=== PATIENT | male | born 1935 | race Caucasian/White ===

== ENCOUNTER 2016-06-24 16:47 | Observation (INO) | payer MEDICARE ==
--- NOTE | 2016-06-24 17:45 | RAD ---
HISTORY: Left hip pain, fall, prior hip fracture COMPARISONS: December 15, 2015 VIEWS: 3, Frontal view of the pelvis with frontal and frog-leg views of the left hip FINDINGS: BONE DENSITY: There is diffuse osteopenia. BONES: The patient is status post left hip arthroplasty. There is no hardware failure or osteolysis. 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 ALIGNMENT: There is no dislocation. SOFT TISSUES: Unremarkable. OTHER FINDINGS: None. IMPRESSION: 1. OSTEOPENIA. 2. STATUS POST LEFT HIP ARTHROPLASTY. 3. NO ACUTE OSSEOUS INJURY. IF SYMPTOMS PERSIST, RECOMMEND REPEAT IMAGING.
[2016-06-24] MEDS ORDERED: hydrALAZINE IV* 20 MG/ML VIAL IM ONE (18:07)
[2016-06-24] MEDS ORDERED: traMADol TAB* 50 MG PO ONE (18:08)
[2016-06-24] MEDS ORDERED: amLODIPine TAB* 5 MG PO ONE (18:08)
[2016-06-24] MEDS ORDERED: traMADol TAB* 50 MG PO PRN (18:44)
[2016-06-24] MEDS ORDERED: Labetalol IV* 5 MG/ML 20 ML VIAL IV PUSH PRN (19:22)
[2016-06-24] MEDS: Acetaminophen TAB* 325 MG PO SCH (20:41)
[2016-06-24] MEDS: Morphine INJ* 2 MG/ML 1 ML CARPUJECT IV PRN (20:41)
[2016-06-24] MEDS ORDERED: Phenytoin CAP(*) 100 MG CAP.ER PO SCH (21:00)
--- NOTE | 2016-06-24 21:32 | HP ---
HISTORY AND PHYSICAL: DATE OF ADMISSION: 06/24/16 PCP: Dr. Espinal. PRINCIPAL DISCHARGE DIAGNOSIS: Left hip pain status post fall. HISTORY OF PRESENT ILLNESS: Mr. Fernandes is a pleasant 81-year-old male with a past medical history of seizure disorder, who presents to the hospital after a mechanical fall at home and resolving left hip pain. The patient states he has been in his usual state of health this morning, he was out in his garage looking under his car. He says that he was kneeling on a 2x4 and when he stood up, he lost his balance, fell on the ground landing on his left side. He states he did not hit his head and did not lose consciousness. Also, denies any preceding chest pain, dizziness, lightheadedness, shortness of breath, or palpitations. He says as soon as he fell, he had immediate pain in the left hip and left knee. He says he initially was able to stand up. He tried to get inside; however, the pain became worse and he needed to crawl inside of his house. He was alone in a trailer in [place]. He states that prior to this fall, he had been doing quite well. Denies any recent fever, chills, abdominal pain, nausea, vomiting, diarrhea, constipation, dysuria, bright red blood per rectum, melena, or hematuria. In the emergency department, the patient underwent an x-ray that was negative for any fracture; however, after I attempted to ambulate the patient, he had significant pain and difficulty and it was felt that he was not safe to discharge home. PAST MEDICAL HISTORY: Seizure disorder, hyperlipidemia, OCD. PAST SURGICAL HISTORY: Left total hip arthroplasty in March 2015, left wrist surgery, hemorrhoidectomy. HOME MEDICATIONS: Phenytoin 100 mg in the morning and 200 mg at night. ALLERGIES: The patient reports no known drug allergies. FAMILY HISTORY: Negative as per the patient. 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 His over the past few years. Denies any tobacco or alcohol or illicit drug use. REVIEW OF SYSTEMS: A 12-point review of systems is negative except for that noted in the HPI. PHYSICAL EXAMINATION GENERAL: The patient is an elderly man, lying in bed, in no apparent distress. VITAL SIGNS: On admission, temperature 98.4, heart rate of 76, respiratory rate of 18, O2 saturation 96% on room air, blood pressure 164/80. HEENT: Pupils equal, round, and reactive to light and accommodation. Anicteric sclerae. Moist mucous membranes. No cervical adenopathy. LUNGS: Clear to auscultation bilaterally. No wheezes, rales, or rhonchi. CARDIOVASCULAR: Regular rate and rhythm. S1 and S2 present. No murmurs, gallops, or rubs. ABDOMEN: Soft, nontender, and distended. Bowel sounds positive. EXTREMITIES: No cyanosis, clubbing, or edema. The patient is unable to perform active left hip flexion due to pain. The patient has significant pain with passive left hip flexion after about 20 degrees. Has tenderness to palpation inferior to the left greater trochanter. No tenderness around the knee. No pain with rolling of the left hip. NEURO: The patient is alert and oriented x3. Strength is 5/5 in right lower extremity. DIAGNOSTIC STUDIES: Hip/pelvic x-ray, impression: Osteopenia, status post left hip arthroplasty, no acute osseous injury. ASSESSMENT AND PLAN: Left hip pain after mechanical fall in an 81-year-old male with a past medical history of seizure disorder. 1. Left hip pain. The patient is unable to ambulate on his own. We tried to control the pain. We will start [id number] Tylenol as well as p.r.n. tramadol. The patient is hesitant to take strong pain medications. We will keep some IV morphine available for the patient if he has severe pain. Physical therapy has been ordered. I am not convinced that the patient will improve enough in the next day or two to go home on his own. 2. Seizure disorder. Continue the patient's home phenytoin 100 mg in the morning and 200 mg at bedtime. 3. Hypertension. Likely exacerbated by pain. We will have IV labetalol available. The patient has systolic blood pressure greater than 180 that is persistent. 4. DVT prophylaxis. Heparin subcu. 5. Code status. The patient is a full code. TIME SPENT: Total time spent on this admission 45 minutes with over half the time spent [id number] with the patient in counseling and coordinating care. CC: Dr. Espinal* [id number]/[facility] #: [id number] [facility]
[2016-06-24] MEDS: Heparin VIAL(*) 5000 UNITS/ML VIAL (FIVE THOUSAND) SUBCUT SCH (21:55)
--- NOTE | 2016-06-24 22:38 | ED ---
Rhoda Monte Rebecca, scribed for Bill Mart MD on 06/24/16 at 1703 . Lower Extremity - HPI Summary HPI Summary: Pt is an 81 y/o M BIBA who presents to ED c/o L hip pain s/p fall. Pt reports that he lost his balance and fell from a standing height, prior to arrival. Pain began immediately s/p fall and has been constant since onset. Pain is characterized as sharp. Sx aggravated and alleviated by nothing. Denies TALBOT, CP, abd pain, neck and back pain. Denies numbness and tingling. Is not on any blood thinners. Denies recent illness. States that he does not have many falls and typically uses a walker. Neighbor confirms he is typically very active and walks nearly every day. PMHx left hip fracture and it has "never been right" since then. - History of Current Complaint Stated Complaint: FALL Time Seen by Provider: 06/24/16 16:53 Hx Obtained From: Patient Mechanism Of Injury: Fall From A Standing Position Onset of Pain: Prior to Arrival Onset/Duration: Still Present Severity Initially: Moderate Severity Currently: Moderate Timing: Constant Location: Is Discrete @ - L hip Character Of Pain: Sharp Associated Signs And Symptoms: Positive: Negative Aggravating Factor(s): Nothing Alleviating Factor(s): Nothing - Allergies/Home Medications Allergies/Adverse Reactions: Allergies Allergy/AdvReac Type Severity Reaction Status Date / Time No Known Allergies Allergy Verified 03/20/15 08:40 PMH/Surg Hx/FS Hx/Imm Hx Cardiovascular History: Reports: Hx Hypercholesterolemia Respiratory History: Reports: Hx Pulmonary Embolism GI History: Reports: Other GI Disorders - hemroidectomy, hernia repair Musculoskeletal History: Reports: Hx Orthopedic Injury - left hip fx Sensory History: Reports: Hx Contacts or Glasses Opthamlomology History: Reports: Hx Contacts or Glasses Neurological History: Reports: Hx Seizures - Surgical History Surgery Procedure, Year, and Place: hernia repair, hemroidectomy, unable to obtain specific year Hx Anesthesia Reactions: No Infectious Disease History: Denies: Hx Clostridium Difficile - Family History Known Family History: Positive: Cardiac Disease - Social History Lives: Alone Alcohol Use: None Substance Use Type: Reports: None Smoking Status (MU): Never Smoked Tobacco Review of Systems Negative: Chest Pain Negative: Abdominal Pain Positive: Arthralgia - L hip pain; Denies neck and back pain Neurological: Other - Denies tingling Negative: Headache, Numbness All Other Systems Reviewed And Are Negative: Yes Physical Exam - Summary Physical Exam Summary: General: Comfortable, pleasant, alert, NAD HEENT: Moist mucosa, PERRL, Neck: soft, supple, no adenopathy, no edema Heart: S1, S2, RRR, no murmurs, rubs, or gallops Lungs: Clear to auscultation, breathing comfortable, no wheezes or rales Abdominal: Soft, flat, nontender Extremities: No edema, no calf tenderness, FROM C-spine. LLE slightly shortened , ankle and knee nontender. Some pain with internal and external rotation of the LLE. Mild tenderness on the lateral hip palpation. Some L inguinal area tenderness.Pelvis nontender. Ischial tuberosity nontender. No spinal tenderness. Neuro: Alert and oriented x 3 Psych: Logical, coherent Triage Information Reviewed: Yes Vital Signs On Initial Exam: Initial Vitals Temp Pulse Resp BP Pulse Ox 98.4 F 76 18 164/80 96 06/24/16 17:04 06/24/16 17:04 06/24/16 17:04 06/24/16 17:04 06/24/16 17:04 Vital Signs Reviewed: Yes Diagnostics - Vital Signs Vital Signs Temp Pulse Resp BP Pulse Ox 06/24/16 18:00 117 24 183/112 94 06/24/16 17:04 98.4 F 76 18 164/80 96 - Laboratory Lab Statement: Any lab studies that have been ordered have been reviewed, and results considered in the medical decision making process. - Radiology Hip/Pelvis XR Xray Interpretation: No Acute Changes - 1. OSTEOPENIA. 2. STATUS POST LEFT HIP ARTHROPLASTY. 3. NO ACUTE OSSEOUS INJURY. IF SYMPTOMS PERSIST, RECOMMEND REPEAT IMAGING. Radiology Interpretation Completed By: Radiologist Lower Extremity Course/Dx - Course Assessment/Plan: Simple mechanical fall. We offered pain medicines, pt refused, state she believes he can walk with a walker. At home he has a cane, walker and wheelchair. No signs of fx on XR. He will follow up with PCP as needed. Tramadol PRN. Should he find the pain has worsened or that he cannot perform his ADLs, he agrees to call 911 and have the ambulance transport him back. He has a very kind neighbor with him today that also agrees to keep an eye on him. Attempted to ambulate the pt, he is unable to essentially take care of himself. 81 years old and lives alone. Will be admitted for 23 hour observation and eventually rehab. - Diagnoses Differential Diagnosis/HQI/PQRI: Positive: Cellulitis, Compartment Syndrome, Contusion, Fracture (Closed), Fracture (Open), Septic Arthritis, Sprain, Strain Provider Diagnoses: Fall, Hip pain, left - Physician Notifications Discussed Care of Patient With: Dr. Tapia, hospitalist, who accepts pt for admission. Time Discussed With Above Provider: 18:16 Discharge - Discharge Plan Condition: Good Disposition: HOME The documentation as recorded by the Rhoda pierre Rebecca accurately reflects the service I personally performed and the decisions made by me, Bill Mart MD.
[2016-06-25] MEDS: Morphine INJ* 2 MG/ML 1 ML CARPUJECT IV PRN (06:30)
[2016-06-25] MEDS: Heparin VIAL(*) 5000 UNITS/ML VIAL (FIVE THOUSAND) SUBCUT SCH (06:31)
[2016-06-25] MEDS: Acetaminophen TAB* 325 MG PO SCH (08:08)
[2016-06-25] MEDS ORDERED: Phenytoin CAP(*) 100 MG CAP.ER PO SCH (09:00)
[2016-06-25 11:42] VITALS: BP 144/72
--- NOTE | 2016-06-25 14:06 | DCNOTE ---
Patient seen this afternoon. Was able to walk with PT with walker. [place] safe to return home On exam, RRR, s1 and s2 present, no m/g/r, LLE still with some TTP in mid-thigh D/C home with home PT, pain meds. F/U with Dr. Espinal
--- NOTE | 2016-06-26 12:21 | DS ---
CC: Dr. Espinal DISCHARGE SUMMARY: DATE OF ADMISSION: 06/24/16 DATE OF DISCHARGE: 06/25/16 PRIMARY CARE PHYSICIAN: Dr. Espinal. PRINCIPAL DISCHARGE DIAGNOSIS: Mechanical fall with left hip pain. SECONDARY DIAGNOSIS: Seizure disorder. STUDIES DONE DURING HOSPITALIZATION: Left hip x-ray: Impression: Osteopenia status post left hip arthroplasty and no acute osseous injury. DISCHARGE MEDICATION REGIMEN: 1. Tylenol 975 mg by mouth 3 times daily. 2. Tramadol 50 mg by mouth every 6 hours as needed for pain. 3. Phenytoin 100 mg by mouth in the morning, 200 mg by mouth at bedtime. HISTORY OF PRESENT ILLNESS AND HOSPITAL SUMMARY: Please see the full history and physical done by zackary hansen on 06/24/16 for full details. Briefly, Mr. Fernandes is an 81- year-old man with a past medical hist ory of seizure disorder who presented to the hospital after mechanical fall. He landed on his left side, did not hit his head or lose consciousness and had no preceding symptoms. He underwent imagin g of the hip in the emergency department that did not show any evidence of fracture; however, he had significant difficulty standing, let alone ambulating, so hospitalist service was consulted for adm ission. The patient was observed overnight. He was started on around the clock Tylenol with p.r.n. pain medication available. The following day, he was assessed by PT and was doing much better. He was able to stand on his own and was able to ambulate with the help of a walker. It was felt that marky hansen was safe to be discharged home. He will get home physical therapy and continue to take the medica tions prescribed. He will follow up with Dr. Espinal as an outpatient. TIME SPENT: Total time spent on this discharge 40 minutes. This is a summary of the hospitalization, please see the full medical record for further details. [id number]/[facility] #: [id number]
== END 2016-06-25 13:35 | disposition home or self-care (01) ==
LOC: ED 16:47 → INTOOBSV 18:42 → MED 18:42
PROVIDERS: ADMIT Hospitalist; ATTEND Hospitalist
DX: M25.552 Pain in left hip (principal); W01.0XXA Fall on same level from slipping, tripping and stumbling without subsequent striking against object, initial encounter; Y92.008 Other place in unspecified non-institutional (private) residence as the place of occurrence of the external cause; G40.909 Epilepsy, unspecified, not intractable, without status epilepticus; I10 Essential (primary) hypertension; M85.88 Other specified disorders of bone density and structure, other site; M25.562 Pain in left knee; E78.5 Hyperlipidemia, unspecified; F42.9 Obsessive-compulsive disorder, unspecified; Z79.899 Other long term (current) drug therapy
CPT/HCPCS: 96372; 96374; 96375; 96376; 99284; A9270-GY; G0378; G8978-GP-CI; G8979-GP-CI; G8980-GP-CI; J0360; J1644; J2270

== ENCOUNTER 2016-08-20 22:20 | Emergency (ER) | payer MEDICARE ==
[2016-08-20] MEDS ORDERED: Morphine INJ* 2 MG/ML 1 ML SYRINGE IV ONE ×2 (22:36→23:09)
[2016-08-20] MEDS ORDERED: Ondansetron INJ* 2 MG/ML VIAL IV ONE (22:36)
[2016-08-20 22:45] LABS: Hematocrit 36 % (42-52); Hemoglobin 11.9 g/dl (14.0-18.0); Mean Corpuscular HGB Conc 33 g/dl (31-36); Mean Corpuscular Hemoglobin 30 pg (27-31); Mean Corpuscular Volume 92 fL (80-94); Mean Platelet Volume 9 um3 (7.4-10.4); Red Blood Count 3.96 10^6/ul (4.0-5.4); Red Cell Distribution Width 14 % (10.5-15); White Blood Count 11.7 10^3/ul (3.5-10.8)
--- NOTE | 2016-08-20 22:58 | ED ---
Upper Extremity Pain - HPI Summary HPI Summary: Patient is BIBA after slipping on the first of his outdoor steps and falling over the railing onto the ground. He landed on his left shoulder and had intense pain. He was unable to get up and estimates that he was on the ground calling for his neighbor for 1/2 an hour. He denies hitting his head or LOC. His left ribs hurt and he is unwilling to move his left shoulder due to pain. He denies N/T in the LUE, CP, SOB, neck pain or back pain. - History of Current Complaint Chief Complaint: EDShoulderClavicleInj Stated Complaint: FALL/SHOULDER INJURY Time Seen by Provider: 08/20/16 22:22 Hx Obtained From: Patient Mechanism Of Injury: Fall From A Standing Position Onset/Duration: Started Hours Ago Timing: Constant Severity Initially: Severe Severity Currently: Severe Pain Location: Shoulder Character: Sharp, Aching Aggravating Factor(s): Movement Alleviating Factor(s): Nothing Associated Signs & Symptoms: Positive: Negative Related History: Dominant Hand Right - Allergies/Home Medications Allergies/Adverse Reactions: Allergies Allergy/AdvReac Type Severity Reaction Status Date / Time No Known Allergies Allergy Verified 03/20/15 08:40 PMH/Surg Hx/FS Hx/Imm Hx Cardiovascular History: Reports: Hx Hypercholesterolemia Respiratory History: Reports: Hx Pulmonary Embolism GI History: Reports: Other GI Disorders - hemroidectomy, hernia repair Musculoskeletal History: Reports: Hx Orthopedic Injury - left hip fx Sensory History: Reports: Hx Contacts or Glasses Opthamlomology History: Reports: Hx Contacts or Glasses Neurological History: Reports: Hx Seizures - Surgical History Surgery Procedure, Year, and Place: hernia repair, hemroidectomy, unable to obtain specific year Hx Anesthesia Reactions: No Infectious Disease History: Denies: Hx Clostridium Difficile, Traveled Outside the [place] in Last 30 Days - Family History Known Family History: Positive: None, Cardiac Disease - Social History Occupation: Retired Lives: With Family Alcohol Use: None Substance Use Type: Reports: None Smoking Status (MU): Never Smoked Tobacco Review of Systems Negative: Chest Pain Negative: Shortness Of Breath Positive: Arthralgia, Myalgia, Decreased ROM Negative: Headache, Weakness, Paresthesia, Numbness All Other Systems Reviewed And Are Negative: Yes Physical Exam Triage Information Reviewed: Yes Vital Signs On Initial Exam: Initial Vitals Temp Pulse Resp BP Pulse Ox 96.7 F 67 20 197/92 95 08/20/16 22:23 08/20/16 22:23 08/20/16 22:23 08/20/16 22:23 08/20/16 22:23 Vital Signs Reviewed: Yes Appearance: Positive: Well-Appearing, Well-Nourished, Pain Distress Skin: Positive: Warm, Skin Color Reflects Adequate Perfusion, Dry, Soft Head/Face: Positive: Normal Head/Face Inspection Eyes: Positive: EOMI, ANGELICA, Conjunctiva Clear ENT: Positive: Hearing grossly normal Neck: Positive: Supple, Nontender Respiratory/Lung Sounds: Positive: Clear to Auscultation, Breath Sounds Present Cardiovascular: Positive: RRR Abdomen Description: Positive: Nontender, Soft Bowel Sounds: Positive: Present Musculoskeletal: Positive: Limited @ - patient is unwilling to move LUE due to pain; FROM left wrist and hand, Pain @ - TTP left acromion and deltoid muscle; non-tender left humerus, AC joint, bicipital groove, elbow, wrist or hand Neurological: Positive: Sensory/Motor Intact, Alert, Oriented to Person Place, Time, NV Bundle Intact Distally Psychiatric: Positive: Affect/Mood Appropriate AVPU Assessment: Alert Diagnostics - Vital Signs Vital Signs Temp Pulse Resp BP Pulse Ox 08/20/16 22:47 16 08/20/16 22:23 96.7 F 67 20 197/92 95 - Laboratory Lab Results: Lab Results 08/20/16 Range/Units 22:35 WBC 11.7 H (3.5-10.8) 10^3/ul RBC 3.96 L (4.0-5.4) 10^6/ul Hgb 11.9 L (14.0-18.0) g/dl Hct 36 L (42-52) % MCV 92 (80-94) fL MCH 30 (27-31) pg MCHC 33 (31-36) g/dl RDW 14 (10.5-15) % Plt Count 187 (150-450) 10^3/ul MPV 9 (7.4-10.4) um3 Neut % (Auto) 83.4 H (38-83) % Lymph % (Auto) 7.2 L (25-47) % Wilcox % (Auto) 8.5 (1-9) % Eos % (Auto) 0.4 (0-6) % Baso % (Auto) 0.5 (0-2) % Absolute Neuts (auto) 9.7 H (1.5-7.7) 10^3/ul Absolute Lymphs (auto) 0.8 L (1.0-4.8) 10^3/ul Absolute Monos (auto) 1.0 H (0-0.8) 10^3/ul Absolute Eos (auto) 0 (0-0.6) 10^3/ul Absolute Basos (auto) 0.1 (0-0.2) 10^3/ul Absolute Nucleated RBC 0 10^3/ul Nucleated RBC % 0 Result Diagrams: 08/20/16 22:35 08/20/16 22:35 Lab Statement: Any lab studies that have been ordered have been reviewed, and results considered in the medical decision making process. - Radiology No standard instances Xray Interpretation: Positive (See Comments) Radiology Interpretation Completed By: ED Physician - Question of left scapular fracture with all other structures intact - CT No standard instances CT Interpretation: Positive (See Comments) CT Interpretation Completed By: Radiologist - Left minimally displaced left scapular body fracture; Left rib 2-7 and possibly 8 fractures Course/Dx - Course Course Of Treatment: Patient's case was discussed with Dr. Hatch and patient was accepted at [facility]. - Diagnoses Differential Diagnosis/HQI/PQRI: Positive: Arthritis, Bursitis, Fracture (Closed ), Hematoma, Strain, Sprain Provider Diagnoses: Closed left scapular fracture, Multiple rib fractures involving four or more ribs - Physician Notifications Discussed Care Of Patient With: Dr. Hatch, ED attending Instructed by Provider To: Transfer Discharge - Discharge Plan Condition: Stable Disposition: TRANS HIGHER LVL OF CARE FAC
[2016-08-20 23:00] LABS: BUN/Creatinine Ratio 35.8 (8-20); Calcium 8.9 mg/dL (8.6-10.3); EGFR African American 65.8 (>60); EGFR Non-African American 51.2 (>60); Globulin 3.3 g/dL (2-4); Total Bilirubin 0.3 mg/dL (0.2-1.0); Total Protein 7.3 g/dL (6.4-8.9)
[2016-08-20] MEDS ORDERED: NS 0.9% 1000 ML* 1,000 ML IV ONE (23:03)
[2016-08-20] MEDS ORDERED: Acetaminophen TAB* 325 MG PO ONE (23:09)
[2016-08-21 02:35] VITALS: BP 173/84
--- NOTE | 2016-08-21 07:35 | RAD ---
INDICATION: Left shoulder injury. TECHNIQUE: 3 views of the left shoulder were obtained. FINDINGS: The bones appear osteoporotic. There is a transverse slightly comminuted fracture through the midportion of the scapular fossa. The distal inferior fragment is angulated lateral relative to the proximal fragment. Incidental note is made of moderate osteoarthritic change in the acromioclavicular joint. IMPRESSION: COMMINUTED ANGULATED FRACTURE OF THE SCAPULA.
--- NOTE | 2016-08-21 07:49 | RAD ---
INDICATION: Fall, left shoulder and chest pain. COMPARISON: Comparison is made with a prior CT of the chest from January 16, 2003. TECHNIQUE: A CT scan of the chest was performed without intravenous contrast. Contiguous axial sections were obtained from the lung apices through the lung bases. Images were reconstructed in the coronal and sagittal planes. FINDINGS: There are dependent bilateral lower lobe infiltrates suggestive of atelectasis. No pneumothorax or pleural effusion is seen. There is pleural thickening present posterior laterally adjacent to the left upper lobe associated with multiple rib fractures. No significant enlarged mediastinal or hilar lymph nodes are seen. There are multiple calcified right peritracheal subcarinal and right hilar lymph nodes consistent with old granulomatous disease. The heart is within normal limits in size. No pericardial effusion is present. The thoracic aorta is normal in caliber. There are displaced fractures of the left second, third and fourth ribs and nondisplaced fractures of the fifth, sixth and seventh ribs. There are chronic fractures of the C7, L1 and L3 vertebral bodies. There appears to be a hemangioma in the T9 vertebral body. There is an acute fracture through the scapular body which is slightly displaced. The distal fragment is angulated posterolateral relative to the proximal fragment IMPRESSION: 1. ACUTE FRACTURES OF THE LEFT SECOND THROUGH SEVENTH RIBS. NO EVIDENCE FOR PNEUMOTHORAX OR PLEURAL EFFUSION. 2. DEPENDENT BILATERAL LOWER LOBE INFILTRATES MOST CONSISTENT WITH ATELECTASIS. 3. COMMINUTED SLIGHTLY DISPLACED AND SLIGHTLY ANGULATED FRACTURE OF THE SCAPULA. 4. CHRONIC COMPRESSION FRACTURES OF THE C7, L1 AND L3 VERTEBRAL BODIES.
--- NOTE | 2016-08-21 07:50 | RAD ---
INDICATION: Left-sided rib pain after a fall COMPARISON: Most recent comparison chest x-rays dated December 18, 2015 TECHNIQUE: PA and lateral views of the chest were obtained. FINDINGS: There is discontinuity of the scapular spine on the left. There is likely discontinuity of the lateral aspect of the upper ribs, perhaps the second and third rib. There is mild cardiomegaly and coarse calcification at the arch of the aorta similar in appearance of the previous chest x-ray. There is no pneumothorax on the left. There is bibasilar costophrenic angle blunting but overall there is improved aeration of the lung relative to the previous chest x-ray. There is no radiographic evidence of free air beneath the diaphragm IMPRESSION: LIKELY DISPLACED RIB FRACTURES INVOLVING THE UPPER LATERAL LEFT RIBS WELL POTENTIAL LEFT SCAPULA FRACTURE. RECOMMEND AT LEAST DEDICATED LEFT-SIDED RIB SERIES IF NOT CT OF THE CHEST FOR IMPROVED CHARACTERIZATION.
== END 2016-08-21 02:33 | disposition short-term general hospital (02) ==
LOC: ED 22:20
DX: S42.102A Fracture of unspecified part of scapula, left shoulder, initial encounter for closed fracture (principal); S22.42XA Multiple fractures of ribs, left side, initial encounter for closed fracture; W19.XXXA Unspecified fall, initial encounter; Y93.9 Activity, unspecified; Y92.9 Unspecified place or not applicable
CPT/HCPCS: 36415; 71020; 71250; 80053; 82550; 85025; 96374; 96375; 99284; A9270-GY; J2270; J2405